=== PATIENT | female | born 1955 | race Caucasian/White ===

== ENCOUNTER → 2025-08-03 12:45 | Outpatient (REF) | payer MEDICARE, SELFPAY ==
--- NOTE | 2025-07-16 10:59 | PN.DIAED02 ---
Addendum entered by Astrid Willingham RN 07/16/25 11:33:
PHQ-9 score 1
Original Note:
Referral
DSME Class Series Code: [id number]
Referred For: Diabetes Self-Management Training, Medical Nutrition Therapy, Self-Blood Glucose Monitoring, Long-Term Complication Instruction, Accute Complication Instruction, Medication management, Care Coordination, Disease Management
PHI Release Authorization Form Signed: Yes
Demographic
Patient's primary language-: Wolof
Education: College degree
Occupation: Retired
- Social
Primary Support Person: Self & spouse, Family
Primary Care Takers: Self & spouse, Family
Living Arrangements: Self & spouse, Family
- Learning Methods
Preferred Method: Hands-on demonstration, Group discussion
Barriers to Learning: None
Glycemic Control
- Blood Glucose Monitoring Assessment
Blood glucose monitoring at home: No
- Ketone Monitoring Assessment
Patient monitoring ketone: No
- Hyperglycemia Assessment
Experiences Hyperglycemia: Yes
Frequency: 4-6x per week (peripheral neuropathy)
- Hypoglycemia Assessment
Patient carries glucose source: No
Patient experiences hypoglycemia: No
- Blood Glucose Monitoring Results
Source: meter (119 3 hours PP today in office)
- Hemoglobin A1c
Date: 04/13/25
A1C Percentage (%): 6.7
Medical History of Diabetes
Previous Diabetes Education: No
Previous visit with Dietitian: Yes (visits RD from our office)
How long ago?: < 1 mo. ago
Complications/Comorbidity/Specialist: Hypertension (Furosemide 20 mg QD, Lisinopril 2.5 mg QD), Hyperlipidemia (Atorvastatin Calcium 40 mg QD), Metabolic (T2D: Metformin 500 mg QD), Pulmonary disease (COPD), Other / symptoms (Depression: Trazpdpme
100 mg QD, Venlafaxine ER 150 mg QD)
Measures
- Anthropometrics
Height: 5 ft 5 in
Actual Weight: 200 lb 3.2 oz
- Blood Pressure / Pulse
Blood pressure: 143/68
- Diabetes Management
Medical Management for Diabetes: Complete physical exam (04/21/2025), Dental exam (07/03/2025), Dilated eye exam (09/29/2024), Foot exam (07/02/2025)
Self-Care
- Tobacco Usage
Do you now, or have you ever smoked?: Quit more than 1 year ago (quit 4.5 years ago)
- Alcohol & Drugs Usage
Drinks Alcohol: Yes
Amount/day: Social Occasions
- Meals & Dining
Meals & Dining: Patient skips meals: No, Food Intolerance / Allergy: Yes, Cultural / Rastafari Dietary Needs: No
Primary Food Licensed Insurance Sales Agent: Self
Primary Lithograph Press Feeder: Self
- Physical Activity
Physical Limitation: No
Patient participates in physical Activity: Yes
Activity Types: walking (10,000 steps a day)
Care Plan
- Education Needs
Patient Education Needs: Diabetes disease process, Chronic complications, Acute complications, Medication, Monitoring, Physical activity, Psychosocial Adjustment, Nutritional management, Goal setting & problem solving
Recommended Diabetes Training Program based on assessment: Outpatient Diabetes Education Program
- Plan of Care
Plan of Care:
07/16/2025 DSME INITIAL CONSULT
Met with participant today for registration and initiation of Diabetes Self-management. Pt was recommended by RD with [facility]. She has had T2D for over 10 years, her HbA1c is currently 6.7% on 03/25/2025. She states her HbA1c has been in this range for
several years. She is prescribed Metformin 500 mg QD.
She does not monitor his glucose, states his MD never discussed this with her. I provided sample of [employer] Next glucose meter and supplies. Demonstrated how to monitor glucose and recommended she check once a day in the AM and alternate 2 hours
after meals and review with provider. BS today was 119 3 hours postprandial. I asked if she would like me to contact her provider to order glucose testing supplies, she confirmed yes.
We reviewed complications of diabetes, fasting and 2 hour post prandial glucose goals, signs and symptoms of hyperglycemia, signs and symptoms of hypoglycemia, and hypoglycemia protocol. She does experience intermittent peripheral neuropathy. We
discussed exercise recommendations of at least 30 minutes per day to help lower glucose levels. She currently walks 10,000 steps a day. She would like to lose weight, and she does belong to a gym. She states she paid for a 5 week course on
resistance training. We discussed talking to a computer trainer at the gym for alternating types of workouts, and also to discuss her weight loss goals with her PCP.
I reviewed and provided diabetes management booklet, insurance billing code and advised she contact her health plan to discuss coverage and cost. She contacted her insurance company, was informed she has a 20% copay for the DSME class.
She has phone # for office if additional needs arise prior to class.
--- NOTE | 2025-07-16 11:29 | PN.DIAED04 ---
Education Record
- Education Record
Class Attended: Other (DSME INTIAL CONSULT)
Instructor: Registered Nurse (Astrid Willingham RN)
Pre-Program Knowledge: Needs review / Assistance
Pre-Test Score (%): 73
Goals
- Goal 1
Being Active: Exercise more often (INTERESTED IN ALTERNATIVE WORKOUTS FOR WEIGHT LOSS)
Goals To Be Evaluated: Exercise more often
- Goal 2
Healthy Eating: Make better food choices
Goals To Be Evaluated: Make better food choices
- Goal 3
Monitoring: Other (BEGIN CHECKING BLOOD SUGAR)
Goals To Be Evaluated: Other
--- NOTE | 2025-08-05 13:31 | PN.DIAED14 ---
This is to notify you that your patient with diabetes, MAGDALENA HEALY ( 1955), has enrolled in our diabetes self-management classes that are being held at [facility].
These classes will include an introduction to diabetes, diet, medication, exercise and prevention of complications. At the end of our class series, you will receive a report of your patient's participation and progress for your records.
Please contact me at the Diabetes Center, , if there is any particular information regarding your patient that might be helpful to me.
Sincerely,
Garcia MORALES-FABIANA, [facility] [place]
--- NOTE | 2025-08-05 13:31 | PN.DIAED04 ---
Education Record
- Education Record
Class Attended: Class 1
DSME Class Series Code: [id number]
Instructor: Registered Nurse (Astrid Willingham RN)
Class Curriculum:
Outpatient Diabetes Education Program:
Class 1 (120 minutes)
Describe the diabetes disease process and treatment options
Diabetes management
Develop personal strategies to promote health and behavior change
Integrate psychosocial adjustment for daily living
Monitor blood glucose and other parameters. Interpret and use the results for self-management decision making
Prevent, detect, and treat acute complications
Class Length (mins): 120
Post-Class 1 Test Score (%): 88
== END ==
LOC: DES 12:45
PROVIDERS: ATTENDING PHYSICIAN Family Medicine
DX: E11.9 Type 2 diabetes mellitus without complications (principal)
CPT/HCPCS: 99078

== ENCOUNTER → 2025-08-10 09:54 | Outpatient (REF) | payer MEDICARE, SELFPAY ==
--- NOTE | 2025-08-11 10:05 | PN.DIAED04 ---
Education Record
- Education Record
Class Attended: Class 2
DSME Class Series Code: [id number]
Instructor: Registered Dietitian (Viv Viera, RD, LDN, CDE)
Class Curriculum:
Outpatient Diabetes Education Program:
Class 2 (120 minutes)
Incorporate nutritional management into lifestyle
Understanding nutritional value
Understanding carbohydrate counting
Class Length (mins): 120
== END ==
LOC: DES 09:54
PROVIDERS: ATTENDING PHYSICIAN Family Medicine
DX: E11.9 Type 2 diabetes mellitus without complications (principal)
CPT/HCPCS: 99078

== ENCOUNTER → 2025-08-17 10:40 | Outpatient (REF) | payer MEDICARE, SELFPAY ==
--- NOTE | 2025-08-19 12:05 | PN.DIAED04 ---
Education Record
- Education Record
Class Attended: Class 3
DSME Class Series Code: [id number]
Instructor: Registered Dietitian (Viv Viera, RD, LDN, CDE)
Class Curriculum:
Outpatient Diabetes Education Program:
Class 3 (120 minutes)
Incorporate nutritional management into lifestyle
Class Length (mins): 120
Post-Class 2 & 3 Test Score (%): 81
== END ==
LOC: DES 10:40
PROVIDERS: ATTENDING PHYSICIAN Family Medicine
DX: E11.9 Type 2 diabetes mellitus without complications (principal)
CPT/HCPCS: 99078

== ENCOUNTER → 2025-08-24 09:12 | Outpatient (REF) | payer MEDICARE, SELFPAY ==
--- NOTE | 2025-08-26 11:45 | PN.DIAED04 ---
Education Record
- Education Record
Class Attended: Class 4
DSME Class Series Code: [id number]
Instructor: Nurse Practitioner (CARMEN Enriquez)
Class Curriculum:
Outpatient Diabetes Education Program:
Class 4 (120 minutes)
Develop personal strategies to promote health and behavior change
Incorporate physical activity into lifestyle
Utilize medications safety for maximum therapeutic effectiveness
Understand different medication/insulin mechanism of action
Preparing for travel
Class Length (mins): 120
Post-Class 4 Test Score (%): 93
== END ==
LOC: DES 09:12
PROVIDERS: ATTENDING PHYSICIAN Family Medicine
DX: E11.9 Type 2 diabetes mellitus without complications (principal)
CPT/HCPCS: 99078

== ENCOUNTER → 2025-08-31 09:24 | Outpatient (REF) | payer MEDICARE, SELFPAY ==
--- NOTE | 2025-09-02 12:41 | PN.DIAED04 ---
Education Record
- Education Record
Class Attended: Class 5
DSME Class Series Code: [id number]
Instructor: Registered Nurse (Astrid Willingham RN)
Class Curriculum:
Outpatient Diabetes Education Program:
Class 5 (120 minutes)
Prevent, detect, and treat acute complications
Prevent, detect, and treat chronic complications through risk reduction
Develop personal strategies to address psychosocial issues and concerns
Development of diabetes self-management support plan
Letter to physician with DSMS plan attached sent
Class Length (mins): 120
Post-Program Knowledge: Demonstrates competency
Post-Test Score (%): 80
Post-Program Assessment
- Post-Program Assessment
Actual Weight: 198 lb 12.8 oz
Blood pressure: 128/58
Post-Program Depression Survey Score: 0
Reviewing Previous Goals?: Yes
- Goals 1 Evaluation
Goals To Be Evaluated: Exercise more often
- Goals 2 Evaluation
Goals To Be Evaluated: Make better food choices
- Goals 3 Evaluation
Goals To Be Evaluated: Start checking sugar level
--- NOTE | 2025-09-02 12:43 | PN.DIAED16 ---
This is to notify you that your patient with diabetes, MAGDALENA HEALY ( 1955), has attended the entire series of Diabetes Self-Management Education Classes.
Class 1 (120 minutes): Diabetes Overview - monitoring, stress/psychosocial adjustment, support, goal setting
Class 2 (120 minutes): Meal Planning - serving sizes, menu plans
Class 3 (120 minutes): Introduction to Carbohydrate Counting, Analyzing Food Labels
Class 4 (120 minutes): Medication, Exercise and Activity
Class 5 (120 minutes): Sick Day Management, Strategies to Reduce Complications, Problem Solving, Resources
The following behavioral goals were identified:
Exercise more often
Make better food choices
Start checking sugar level
A follow-up call will be made within three to six months to evaluate attainment of these goals and to check post-program Hemoglobin A1c and overall progress. All class participants are encouraged to contact me if I can be any further assistance in
learning how to manage their diabetes.
Sincerely,
Garcia MORALES-FABIANA,VETOES
== END ==
LOC: DES 09:24
PROVIDERS: ATTENDING PHYSICIAN Family Medicine
DX: E11.9 Type 2 diabetes mellitus without complications (principal)
CPT/HCPCS: 99078